=== PATIENT | male | born 1950 | race Caucasian/White ===

== ENCOUNTER 2023-01-01 09:14 | Outpatient (OUT) | payer MEDICARE, SELFPAY | END 2023-01-01 09:15 | disposition home or self-care (01) | LOC: PST 09:15 | PROVIDERS: Visit Provider Surgery | DX: Z01.818 Encounter for other preprocedural examination (principal); Z12.11 Encounter for screening for malignant neoplasm of colon ==

== ENCOUNTER 2023-01-15 07:55 | Day surgery (SDC) | payer MEDICARE, SELFPAY ==
[2023-01-15 08:11] VITALS: BP 145/79; PULSE 60; RESP 20; TEMP 36.3; O2SAT 97; BMI 27.3
[2023-01-15] MEDS: LACTATED RINGER'S SOLUTION 1,000 ML 50 ML IV (08:20)
[2023-01-15 09:27] VITALS: BP 114/68; PULSE 60; RESP 20; O2SAT 96
--- NOTE | 2023-01-15 09:36 | PM.GSPRC ---
Indications for Procedure: This patient is a 73-year-old male who presents for screening colonoscopy. The risks benefits options and potential complications of the procedure were discussed in detail with the patient and they agreed to proceed and consent was signed. Pre-op diagnosis: colon cancer screening Post-op diagnosis: other (diverticulosis) Procedure: colonoscopy Anesthesia: MAC Surgeon: Ozzie Beauchamp Procedure Summary: The patient was brought to the endoscopy suite and placed in the left lateral decubitus position.? Under MAC the fiberoptic colonoscope was introduced into the rectum. This was gradually advanced through the colon to the cecum. The cecal landmarks were identified. The bowel prep was good. Gradual withdrawal of the colonoscope was then undertaken. Other than scattered diverticuli, no vascular polypoid or mucosal lesions were noted throughout the entire length of the colon. The anal rectal canal was unremarkable. The colon was decompressed. Digital rectal exam was unremarkable. The procedure was ended and the patient was transferred to the recovery area in stable condition. Recommended follow-up colonoscopy in ten years. Estimated blood loss (mL): 0 Specimens: none Complications: No
[2023-01-15 09:40] VITALS: BP 110/64; PULSE 56; RESP 18; O2SAT 95
[2023-01-15 09:55] VITALS: BP 139/79; PULSE 64; RESP 18; O2SAT 96
== END 2023-01-15 10:03 | disposition home or self-care (01) ==
PROVIDERS: Visit Provider Surgery
PROC: (CPT G0121; principal; 2023-01-15 09:00)
DX: Z12.11 Encounter for screening for malignant neoplasm of colon (principal); K57.30 Diverticulosis of large intestine without perforation or abscess without bleeding; I10 Essential (primary) hypertension; M54.12 Radiculopathy, cervical region; Z90.49 Acquired absence of other specified parts of digestive tract; F17.210 Nicotine dependence, cigarettes, uncomplicated
CPT/HCPCS: G0121; J2704